=== PATIENT | female | born 1995 | race Hispanic/Latino ===

== ENCOUNTER 2019-11-18 10:39 | Emergency (ER) | payer BC ==
[2019-11-18 11:13] LABS: Clarity Clear (Clear)
[2019-11-18 11:14] LABS: Bilirubin Unable to Interpret (Negative); Blood, Urine Negative (Negative); Glucose, Urine (Dipstick) Unable to Interpret mg/dL (Negative); Leukocyte Trace Leu/uL (Negative); Nitrite Unable to Interpret (Negative); Urobilinogen UNABLE TO INTERPRET mg/dL (Less than 2)
[2019-11-18 11:16] LABS: Protein, Urine (Dipstick) Negative (Neg-Trace)
[2019-11-18 11:19] LABS: Pregnancy Test - Urine (BHCG) Negative (Negative); Pregu Control Background? CLEAR/WHITE (CLR/WHITE); Pregu Control Bar Appear? YES (CONTROL BAR); Specific Gravity 1.024 (1.002-1.036)
[2019-11-18 11:20] LABS: RBC/HPF 0-3 HPF (0-3); Transitional Epithelial 0-3 HPF (None Seen)
[2019-11-18 11:21] LABS: Bacteria/HPF None Seen HPF (None Seen)
== END 2019-11-18 11:55 | disposition home or self-care (01) ==
LOC: ERS 10:39
DX: N30.00 Acute cystitis without hematuria (principal); F17.210 Nicotine dependence, cigarettes, uncomplicated
CPT/HCPCS: 81003; 81015; 81025; 87086; 99283

== ENCOUNTER 2020-04-07 19:52 | Emergency (ER) | payer BC, OTHER | END 2020-04-07 20:40 | disposition home or self-care (01) | LOC: ERS 19:52 | DX: O9A.211 Injury, poisoning and certain other consequences of external causes complicating pregnancy, first trimester (principal); S39.011A Strain of muscle, fascia and tendon of abdomen, initial encounter; Z3A.12 12 weeks gestation of pregnancy; Z87.891 Personal history of nicotine dependence; X50.0XXA Overexertion from strenuous movement or load, initial encounter; Y99.0 Civilian activity done for income or pay | CPT/HCPCS: 99283 ==

== ENCOUNTER 2020-05-27 22:00 | Emergency (ER) | payer BC, OTHER, SELFPAY ==
[2020-05-27 22:34] LABS: Clarity Hazy (Clear); Specific Gravity, Urine 1.008 (1.002-1.036); pH, Urine 7.2 (5.0-9.0)
[2020-05-27 22:35] LABS: Bilirubin Unable to Interpret (Negative); Blood, Urine Unable to Interpret (Negative); Glucose, Urine (Dipstick) Unable to Interpret mg/dL (Negative); Ketone, Urine Unable to Interpret mg/dL (Negative); Leukocyte Unable to Interpret Leu/uL (Negative); Nitrite Unable to Interpret (Negative); Protein, Urine (Dipstick) Unable to Interpret mg/dL (Neg-Trace); Urobilinogen UNABLE TO INTERPRET mg/dL (Less than 2)
[2020-05-27 22:37] LABS: Squamous Epithelial 0-3 HPF (0-3); WBC/HPF 21-50 HPF (0-3)
[2020-05-27 22:39] LABS: Bacteria/HPF 2+ HPF (None Seen); Renal Epithelial None Seen HPF (None Seen); Transitional Epithelial 0-3 HPF (None Seen)
[2020-05-27 23:28] LABS: #Eosinphils 0.1 thou/uL (0.0-0.7); #Monocytes 0.4 thou/uL (0.11-0.59); #Neutrophils 8.5 thou/uL (1.40-6.50); %Basophils 0.2 % (0.0-1.0); %Eosinophils 0.6 % (0.0-10.0); %Lymphocytes 17.9 % (21.0-51.0); %Monocytes 3.8 % (0.0-10.0); %Neutrophils 77.5 % (42.0-75.0); Hemoglobin 11.9 g/dL (12.0-16.0); Mean Corpuscular HGB CONC 34.2 g/dL (32.0-36.0); Mean Corpuscular Hemoglobin 31.3 pg (27.0-31.0); Mean Corpuscular Volume 91.5 fL (78.0-98.0); Mean Platelet Volume 6.9 fL (7.4-10.4); Platelet Count 251 thou/uL (130-400); RBC Distribution Width 11.4 % (11.5-14.5); Red Blood Cell (RBC) Count 3.79 mill/uL (4.20-5.40)
[2020-05-27 23:50] LABS: ALT (SGPT) 14 U/L (8-55); AST (SGOT) 12 U/L (5-34); Albumin 3.8 g/dL (3.5-5.0); Alkaline Phosphatase 46 U/L (40-110); Anion Gap 13 mmol/L (10-20); BUN (Urea Nitrogen) 4 mg/dL (7.0-18.7); Bilirubin, Total 0.2 mg/dL (0.2-1.2); Calc. Creatinine Clearance 0 mL/min (70-130); Calcium 9.1 mg/dL (7.8-10.44); Carbon Dioxide 25 mmol/L (22-29); Chloride 103 mmol/L (98-107); Glucose 110 mg/dL (70-105); Lipase 14 U/L (8-78); Potassium 3.8 mmol/L (3.5-5.1); Protein, Total 6.8 g/dL (6.0-8.3); Sodium 137 mmol/L (136-145)
== END 2020-05-27 23:57 | disposition home or self-care (01) ==
LOC: ERS 22:00
DX: O23.42 Unspecified infection of urinary tract in pregnancy, second trimester (principal); Z87.891 Personal history of nicotine dependence; Z3A.19 19 weeks gestation of pregnancy
CPT/HCPCS: 36415; 80053; 81003; 81015; 83690; 85025; 99284

== ENCOUNTER 2020-06-11 11:41 | Inpatient (IN) | payer OTHER, SELFPAY ==
[2020-06-11 12:12] LABS: #Lymphocytes 1.5 thou/uL (1.20-3.40); #Monocytes 0.4 thou/uL (0.11-0.59); #Neutrophils 9.5 thou/uL (1.40-6.50); %Basophils 0.2 % (0.0-1.0); %Eosinophils 0.3 % (0.0-10.0); %Monocytes 3.3 % (0.0-10.0); %Neutrophils 83.1 % (42.0-75.0); Hemoglobin 11.7 g/dL (12.0-16.0); Mean Corpuscular HGB CONC 35.4 g/dL (32.0-36.0); Mean Corpuscular Hemoglobin 32.3 pg (27.0-31.0); Mean Corpuscular Volume 91.2 fL (78.0-98.0); Mean Platelet Volume 6.6 fL (7.4-10.4); Platelet Count 303 thou/uL (130-400); RBC Distribution Width 11.7 % (11.5-14.5); Red Blood Cell (RBC) Count 3.64 mill/uL (4.20-5.40); White Blood Cell (WBC) Count 11.4 thou/uL (4.8-10.8)
[2020-06-11 12:14] LABS: BHCG - Serum POSITIVE (NEGATIVE); Pregs Control Bar Appear? YES (CONTROL BAR)
[2020-06-11 12:15] LABS: Pregs Control Background? CLEAR/WHITE (CLR/WHITE)
[2020-06-11 12:33] LABS: ALT (SGPT) 18 U/L (8-55); AST (SGOT) 14 U/L (5-34); Albumin 3.6 g/dL (3.5-5.0); Alkaline Phosphatase 52 U/L (40-110); Anion Gap 13 mmol/L (10-20); BUN (Urea Nitrogen) 6 mg/dL (7.0-18.7); Bilirubin, Total 0.4 mg/dL (0.2-1.2); Calc. Creatinine Clearance 0 mL/min (70-130); Calcium 8.6 mg/dL (7.8-10.44); Carbon Dioxide 23 mmol/L (22-29); Chloride 103 mmol/L (98-107); Glucose 86 mg/dL (70-105); Lipase 7 U/L (8-78); Potassium 3.8 mmol/L (3.5-5.1); Protein, Total 6.6 g/dL (6.0-8.3); Sodium 135 mmol/L (136-145)
[2020-06-11] MEDS ORDERED: cefTRIAXone\\ROCEPHIN 1 GM VIAL ONE (12:34)
[2020-06-11 12:53] LABS: Bilirubin 1+ (Negative); Blood, Urine 1+ (Negative); Clarity Turbid (Clear); Glucose, Urine (Dipstick) Normal (Negative); Ketone, Urine Negative (Negative); Leukocyte 500 Leu/uL (Negative); Nitrite 1+ (Negative); Protein, Urine (Dipstick) 300 mg/dL (Neg-Trace); Specific Gravity, Urine 1.007 (1.002-1.036); Squamous Epithelial 0-3 HPF (0-3); WBC/HPF Greater than 50 HPF (0-3)
[2020-06-11 12:58] LABS: Bacteria/HPF 1+ HPF (None Seen)
[2020-06-11] MEDS ORDERED: Ondansetron PF 4 MG/2 ML Vial ONE (14:52)
[2020-06-11] MEDS ORDERED: Morphine 4 MG/ML VIAL ONE (14:52)
[2020-06-11] MEDS ORDERED: Ondansetron PF 4 MG/2 ML Vial IVP PRN (14:56)
[2020-06-11] MEDS ORDERED: Acetaminophen 500 MG TAB PO PRN (14:56)
[2020-06-11] MEDS ORDERED: Calcium Carbonate 500 MG ChewTAB PO PRN (14:56)
--- NOTE | 2020-06-11 15:47 | PDOC.FPRHP ---
- History of Present Illness Chief Complaint: Back pain History of Present Illness: 25 yo presents at 20 wks for back pain. Pt was seen 3 weeks ago in the ED and diagnosed with a UTI and sent home on macrobid. She has improvement in her symptoms until last night when she again developed polyuria and today developed severe right flank pain. Pt was determined to have pyelonephritis and received IV rocephin in the ED prior to admission. Pt states she has had a couple UTI's in the past and one previous kidney infection following her first born child. Pt denies any complications in this current . - Allergies/Adverse Reactions Allergies Allergy/AdvReac Type Severity Reaction Status Date / Time No Known Allergies Allergy Verified 06/11/20 15:41 - Home Medications Medication Instructions Recorded Confirmed Type Vit 93/Iron Fum/Folic 1 tab PO DAILY 06/11/20 06/11/20 History [ Formula Tablet] - History PMHx: None PSHx: None FHx: Not significant Social: Denies alcohol, tobacco, or drugs - Review of Systems General: denies: fever/chills, weight/appetite/sleep changes Eyes: denies: vision changes, other ENT: denies: nasal congestion, rhinorrhea Respiratory: denies: cough, shortness of breath Cardiovascular: denies: palpitation, edema Gastrointestinal: denies: nausea, vomiting, diarrhea, abdominal pain Genitourinary: reports: polyuria. denies: dysuria Skin: denies: rashes, lesions Musculoskeletal: reports: pain (right flank). denies: arthritis/arthralgias Neurological: denies: numbness, weakness - Vital signs BP: 132/87, Pulse: 89, Resp: 18, Temp: 98.9 (Oral), O2 sat: 97 on (Room Air) - Physical Exam Constitutional: NAD, awake, alert and oriented HEENT: EOMI, MMM Neck: supple, FROM Heart: RRR, no edema Lungs: no respiratory distress, good air movement Abdomen: soft, non-tender, bowel sounds present Musculoskeletal: normal structure, normal tone, ROM grossly normal -Musculoskeletal: Right CVA tenderness Neurological: no focal deficit Skin: no rash/lesions, good turgor Psychiatric: normal mood and affect, good judgment and insight, intact recent and remote memory FMR H&P: Results - Labs Result Diagrams: 06/11/20 12:03 06/11/20 12:03 Lab results: WBC 11.4 thou/uL (4.8-10.8) H 06/11/20 12:03 Hgb 11.7 g/dL (12.0-16.0) L 06/11/20 12:03 Hct 33.2 % (36.0-47.0) L 06/11/20 12:03 MCV 91.2 fL (78.0-98.0) 06/11/20 12:03 Plt Count 303 thou/uL (130-400) 06/11/20 12:03 Neutrophils % 83.1 % (42.0-75.0) H 06/11/20 12:03 Sodium 135 mmol/L (136-145) L 06/11/20 12:03 Potassium 3.8 mmol/L (3.5-5.1) 06/11/20 12:03 Chloride 103 mmol/L (98-107) 06/11/20 12:03 Carbon Dioxide 23 mmol/L (22-29) 06/11/20 12:03 BUN 6 mg/dL (7.0-18.7) L 06/11/20 12:03 Creatinine 0.61 mg/dL (0.6-1.1) 06/11/20 12:03 Glucose 86 mg/dL (70-105) 06/11/20 12:03 Calcium 8.6 mg/dL (7.8-10.44) 06/11/20 12:03 Total Bilirubin 0.4 mg/dL (0.2-1.2) 06/11/20 12:03 AST 14 U/L (5-34) 06/11/20 12:03 ALT 18 U/L (8-55) 06/11/20 12:03 Alkaline Phosphatase 52 U/L (40-110) 06/11/20 12:03 Serum Total Protein 6.6 g/dL (6.0-8.3) 06/11/20 12:03 Albumin 3.6 g/dL (3.5-5.0) 06/11/20 12:03 Lipase 7 U/L (8-78) L 06/11/20 12:03 Urine Ketones Negative mg/dL (Negative) 06/11/20 12:10 Urine Blood 1+ (Negative) A 06/11/20 12:10 Urine Nitrite 1+ (Negative) A 06/11/20 12:10 Ur Leukocyte Esterase 500 Lj/uL (Negative) A 06/11/20 12:10 Urine RBC 7-10 HPF (0-3) A 06/11/20 12:10 Urine WBC Greater than 50 HPF (0-3) A 06/11/20 12:10 Ur Squamous Epith Cells 0-3 HPF (0-3) 06/11/20 12:10 Urine Bacteria 1+ HPF (None Seen) A 06/11/20 12:10 FMR H&P: A/P - Plan Pyelonephritis - Start rocephin q24hr - IVF - will monitor for symptom resolution - continue abx until cultures resulted and sx resolved 2nd Trimester IUP - no complications - daily FHT Dispo: Admit to inpatient [facility] ELOS >48hr FMR H&P: Upper Level - Plan Date/Time: 06/11/20 1546 Addendum - Attending - Attending Attestation Date/Time: 06/11/201825 I personally evaluated the patient and discussed the management with Dr. Ward. I agree with the History, Examination, Assessment and Plan documented above.
[2020-06-11 16:16] VITALS: BMI 29.2
[2020-06-11] MEDS: Sodium Chloride 0.9% 1,000 ML IV SCH ×2 (17:12→22:35)
[2020-06-11] MEDS: Famotidine 20 MG TAB PO SCH (22:35)
[2020-06-12 00:03] LABS: SARS-CoV-2 MS2 Positive; SARS-CoV-2 N Gene Negative; SARS-CoV-2 S Gene Negative; SARS-CoV-2 by NAA Not Detected (NotDetected); SARS-CoV-2 orf1ab Negative
[2020-06-12] MEDS: Sodium Chloride 0.9% 1,000 ML IV SCH ×2 (02:22→16:05)
[2020-06-12] MEDS: Ondansetron ODT 4 MG TAB PO PRN ×2 (02:22→11:02)
[2020-06-12] MEDS: Famotidine 20 MG TAB PO SCH ×2 (08:25→21:18)
[2020-06-12] MEDS: cefTRIAXone\\ROCEPHIN 1 GM in Sodium Chloride 0.9% 100 ML IVPB SCH (12:31)
--- NOTE | 2020-06-12 20:56 | PDOC.LDHP ---
Labor and Delivery H&P HPI: 25 y/o at 20 and 6/7 weeks, now on Day1 of her Rocephin treatment for pyelonephritis. Patient feels improved today, pain has decreased. Current gestational age (weeks): 20 Grav: 3 Para: 1 Abnormal US findings: No Current medications: pre- vitamins Allergies/Adverse Reactions: Allergies Allergy/AdvReac Type Severity Reaction Status Date / Time No Known Allergies Allergy Verified 06/11/20 15:41 Social history: none - Physical Exam Vital signs reviewed and normal: yes General: NAD, resting Heart: RRR Lungs: CTAB Abdomen: gravid Extremeties: no edema - Assessment 1. IUP AT 20 WEEKS WITH PYELONEPHRITIS 2. NO EVIDENCE OF UROSEPSIS - Plan Plan: other (CONTINUE ROCHEPHIN X 72 HOUR IN-PATIENT, AND WILL TRY TO SWITCH TO PO ABX AND DC TO HOME.)
[2020-06-13] MEDS: Sodium Chloride 0.9% 1,000 ML IV SCH ×3 (01:42→20:28)
[2020-06-13] MEDS: Famotidine 20 MG TAB PO SCH ×2 (07:54→20:28)
[2020-06-13] MEDS: cefTRIAXone\\ROCEPHIN 1 GM in Sodium Chloride 0.9% 100 ML IVPB SCH (12:13)
--- NOTE | 2020-06-13 20:56 | PDOC.EVN ---
Event Note - Event Note Event Note: Patient Name: DEJA ROBERSON Record Number: [id number] Date of : [birth year] Patient Status: Inpatient Attending Provider: Demetrius Bacon Date: 06/13/20 20:55 Initialization Date: 06/12/20 20:54 Labor and Delivery H&P HPI: 25 y/o at 21 and 0/7 weeks, now on Day2 of her Rocephin treatment for pyelonephritis. Patient feels improved today, pain has decreased. Current gestational age (weeks): 21 Grav: 3 Para: 1 Abnormal US findings: No Current medications: pre- vitamins Allergies/Adverse Reactions: Allergies Allergy/AdvReac Type Severity Reaction Status Date / Time No Known Allergies Allergy Verified 06/11/20 15:41 Social history: none - Physical Exam Vital signs reviewed and normal: yes General: NAD, resting Heart: RRR Lungs: CTAB Abdomen: gravid Extremeties: no edema - Assessment 1. IUP AT 21 WEEKS WITH PYELONEPHRITIS 2. NO EVIDENCE OF UROSEPSIS - Plan Plan: other (CONTINUE ROCHEPHIN X 72 HOUR IN-PATIENT, AND WILL TRY TO SWITCH TO PO ABX AND DC TO HOME TOMORROW MID DAY.)
[2020-06-14] MEDS: Sodium Chloride 0.9% 1,000 ML IV SCH ×2 (04:38→08:44)
[2020-06-14] MEDS: Famotidine 20 MG TAB PO SCH (08:44)
[2020-06-14 11:39] VITALS: BP 104/56; TEMP 98.1
[2020-06-14] MEDS: cefTRIAXone\\ROCEPHIN 1 GM in Sodium Chloride 0.9% 100 ML IVPB SCH (12:14)
--- NOTE | 2020-06-14 14:46 | PDOC.EVN ---
Event Note - Event Note Event Note: Patient Name: DEJA ROBERSON Date of : [birth year] Patient Status: Inpatient Attending Provider: Demetrius Bacon Date: 06/13/20 20:55 Initialization Date: 06/13/20 20:55 Event Note - Event Note Event Note: [id number] Date of : [birth year] Patient Status: Inpatient Attending Provider: Demetrius Bacon Date: 06/13/20 20:55 Initialization Date: 06/12/20 20:54 Labor and Delivery H&P HPI: 25 y/o at 21 and 1/7 weeks, now on Day2 of her Rocephin treatment for pyelonephritis. Patient feels improved today, pain has decreased. Current gestational age (weeks): 21 Grav: 3 Para: 1 Abnormal US findings: No Current medications: pre-edwar vitamins Allergies/Adverse Reactions: Allergies Allergy/AdvReac Type Severity Reaction Status Date / Time No Known Allergies Allergy Verified 06/11/20 15:41 Social history: none - Physical Exam Vital signs reviewed and normal: yes General: NAD, resting Heart: RRR Lungs: CTAB Abdomen: gravid Extremeties: no edema - Assessment 1. IUP AT 21 and 1/7 WEEKS WITH PYELONEPHRITIS 2. NO EVIDENCE OF UROSEPSIS - Plan Plan: DC home after today's dose of rocephin. 10 days of home ABX - Omnicef 300mg BID.
[2020-06-14 18:53] LABS: Chlamydia by PCR Not Detected (NotDetected); GC by PCR Not Detected (NotDetected)
--- NOTE | 2020-06-14 19:54 | DIS ---
DATE OF ADMISSION: 06/11/2020 DATE OF DISCHARGE: 06/14/2020 ADMISSION DIAGNOSIS: Intrauterine at 20 weeks with pyelonephritis. CONSULTATIONS: None. DETAILS OF HOSPITALIZATION: Ms. Morgan was admitted from the emergency room, where she presented with pyelonephritis in . She did not go into urosepsis. She was placed on Rocephin intravenous antibiotic every 24 hours and received a total of 4 doses. She was afebrile and is being discharged home with relief of all of her symptoms. We are going to continue her on 10 days of Omnicef twice a day 300 mg with clinic followup scheduled in 1 week. Infection and bleeding precautions as well as labor precautions were reviewed with the patient since all of these are possible in the face of infection. Job ID: [id number]
== END 2020-06-14 14:56 | disposition home or self-care (01) | DRG 833 ==
LOC: ERS 11:41 → 3SE 14:46
PROVIDERS: ADMIT Obstetrics & Gynecology; ATTEND Obstetrics & Gynecology
DX: O23.02 Infections of kidney in pregnancy, second trimester (principal); Z87.891 Personal history of nicotine dependence; Z3A.20 20 weeks gestation of pregnancy; Z20.828 Contact with and (suspected) exposure to other viral communicable diseases
CPT/HCPCS: 36415; 80053; 81003; 81015; 83690; 84703; 85025; 87077; 87086; 87186; 87480; 87491; 87510; 87591; 87635; 87660; 96365; 96375; J0696; J2270; J2405; J3490; Q0162; U0003

== ENCOUNTER 2020-07-25 09:55 | Day surgery (SDC) | payer OTHER ==
[2020-07-25 10:32] VITALS: BP 108/69; BMI 30.3
[2020-07-25] MEDS ORDERED: hydrALAZINE 20 MG/ML VIAL SLOW IVP PRN (12:24)
== END 2020-07-25 12:15 | disposition home or self-care (01) ==
LOC: L&D/OP 09:55
PROVIDERS: ATTEND Obstetrics & Gynecology
DX: O36.8120 Decreased fetal movements, second trimester, not applicable or unspecified (principal); O23.02 Infections of kidney in pregnancy, second trimester; Z3A.27 27 weeks gestation of pregnancy
CPT/HCPCS: 59025; 99282

== ENCOUNTER 2023-11-17 12:32 | Emergency (ER) | payer BC, SELFPAY ==
[2023-11-17 13:49] LABS: Influenza A by NAA Not Detected (NotDetected); Influenza B by NAA Not Detected (NotDetected); SARS-CoV-2 NAA Rapid Test Not Detected (NotDetected)
== END 2023-11-17 14:02 | disposition home or self-care (01) ==
LOC: ERS 12:32
DX: J06.9 Acute upper respiratory infection, unspecified (principal); Z87.891 Personal history of nicotine dependence
CPT/HCPCS: 87081; 87430; 99283

== ENCOUNTER 2024-01-14 18:12 | Emergency (ER) | payer SELFPAY ==
[2024-01-14 19:34] LABS: Bacteria/HPF 1+ HPF (None Seen); Bilirubin 2+ (Negative); Blood, Urine 2+ (Negative); CAUTI Indications for Culture Dysuria,urgency,freq; Clarity Extra Turbid (Clear); Glucose, Urine (Dipstick) Normal (Negative); Ketone, Urine Negative (Negative); Leukocyte 500 Leu/uL (Negative); Nitrite 2+ (Negative); Protein, Urine (Dipstick) 100 mg/dL (Neg-Trace); RBC/HPF Greater than 50 HPF (0-3); Specific Gravity, Urine 1.028 (1.002-1.036); Urobilinogen 12 mg/dL (Less than 2); WBC/HPF Greater than 50 HPF (0-3); pH, Urine 6.5 (5.0-9.0)
[2024-01-14 19:35] LABS: Urine Culture Reflex Yes Yes
[2024-01-14 19:45] LABS: Pregnancy Test - Urine (BHCG) Negative (Negative); Pregu Control Background? CLEAR/WHITE (CLR/WHITE); Pregu Control Bar Appear? YES (CONTROL BAR); Specific Gravity 1.028 (1.002-1.036)
== END 2024-01-14 20:05 | disposition home or self-care (01) ==
LOC: ERS 18:12
DX: N39.0 Urinary tract infection, site not specified (principal); Z87.891 Personal history of nicotine dependence
CPT/HCPCS: 81001; 81025; 87086; 99283